=== PATIENT | male | born 1955 | race Caucasian/White ===

== ENCOUNTER → 2018-01-20 | Outpatient (CLI) | payer OTHER ==
[~2018-01-20] MED LIST: ABAC300; ASPI81CH PO; ATOR20 PO; Amitriptyline H25 MG PO; INSUASPI SC; LISI20 PO; METF500 PO; OMEP20ER PO; Vitamin C100 M1
== END | disposition home or self-care (01) ==
LOC: LAB EV 14:12 → LAB SHORT 14:12
DX: E11.40 Type 2 diabetes mellitus with diabetic neuropathy, unspecified (principal)
CPT/HCPCS: 82043

== ENCOUNTER → 2020-04-15 | Outpatient (CLI) | payer OTHER ==
[~2020-04-15] MED LIST changes: +AMIT25 PO; +Aspirin EC81 MG PO; +BASAGLAR; +BASAGLAR K100 UNIT/1 SC; +GABA300 PO; +Glucophage1000 MG PO; +HUMULIN N100 UNIT/3 SC; +JARDIANCE10 MG PO; +LISINOPRIL-HCT1 EACH PO; +METO25ER PO; +Novolog Fl100 UNIT/1 SC; +Omeprazole20 M1 PO; +TAMS.4ER PO
[2020-04-15 13:07] LABS: Anion Gap 9 mmol/L (6-16); Blood Urea Nitrogen 22 mg/dL (8-24); Bun/Creatinine Ratio 22.7 (12.0-20.0); CO2, Blood 29 mmol/L (21-32); Calcium, Blood 9.6 mg/dL (8.5-10.1); Chloride, Blood 100 mmol/L (98-108); Creatinine, Blood 0.97 mg/dL (0.60-1.20); Glomerular Filtration Rate >60 (60-); Glucose, Blood 223 mg/dL (70-99); Potassium, Blood 4.2 mmol/L (3.5-5.5); Sodium, Blood 138 mmol/L (136-145)
== END | disposition home or self-care (01) ==
LOC: LAB EV 09:47 → LAB SHORT 09:47
PROVIDERS: Internal Medicine
DX: Z11.59 Encounter for screening for other viral diseases (principal); E11.40 Type 2 diabetes mellitus with diabetic neuropathy, unspecified
CPT/HCPCS: 36415; 80048; 83036; 86803

== ENCOUNTER → 2020-08-16 | Outpatient (CLI) | payer OTHER | END | disposition home or self-care (01) | LOC: LAB 14:10 → LAB SHORT 14:10 | DX: D36.11 Benign neoplasm of peripheral nerves and autonomic nervous system of face, head, and neck (principal) | CPT/HCPCS: 88305 ==

== ENCOUNTER 2023-09-30 06:45 | Day surgery (SDC) | payer OTHER ==
[~2023-09-30] VITALS: Ht 177.8 cm; Wt 80.6 kg
[2023-09-30] MEDS ORDERED: ISOMON20 (07:08)
[2023-09-30] MEDS ORDERED: BASAGLAR K100 UNIT/6 (07:09)
[2023-09-30] MEDS ORDERED: Vitamin D1000 UNI1 (07:10)
[2023-09-30] MEDS ORDERED: VICTOZA 2-0.6 MG/0.1 (07:10)
[2023-09-30] MEDS ORDERED: CALCA500S6 (07:10)
[2023-09-30] MEDS ORDERED: propofoL 50 ML IV ONE (07:32)
[2023-09-30] MEDS ORDERED: Lactated Ringer's 1,000 ML IV ONE ×2 (07:32→07:48)
[2023-09-30 08:41] VITALS: BP 110/61
== END 2023-09-30 08:57 | disposition home or self-care (01) ==
LOC: ORSCSDS 06:45
PROVIDERS: Internal Medicine Gastroenterology
PROC: 0DB58ZX Excision of Esophagus, Via Natural or Artificial Opening Endoscopic, Diagnostic (ICD-10-PCS; principal; 2023-09-30 08:00)
PROC: 0DB68ZX Excision of Stomach, Via Natural or Artificial Opening Endoscopic, Diagnostic (ICD-10-PCS; principal; 2023-09-30 08:00)
PROC: 0D758ZZ Dilation of Esophagus, Via Natural or Artificial Opening Endoscopic (ICD-10-PCS; principal; 2023-09-30 08:00)
DX: R13.10 Dysphagia, unspecified (principal); K29.70 Gastritis, unspecified, without bleeding; K31.7 Polyp of stomach and duodenum; K21.9 Gastro-esophageal reflux disease without esophagitis; I10 Essential (primary) hypertension; I73.9 Peripheral vascular disease, unspecified; E11.40 Type 2 diabetes mellitus with diabetic neuropathy, unspecified; Z79.84 Long term (current) use of oral hypoglycemic drugs; Z79.4 Long term (current) use of insulin; Z79.82 Long term (current) use of aspirin; Z79.899 Other long term (current) drug therapy; Z87.891 Personal history of nicotine dependence
CPT/HCPCS: 82947; 88305; 88341; 88342; C1769; J2704; J7120